=== PATIENT | female | born 2000 | race African-American/Black ===

== ENCOUNTER 2019-05-02 15:11 | Emergency (ER) | payer BC ==
[~2019-05-02] VITALS: Ht 167.6 cm; Wt 90.7 kg
[2019-05-02 15:52] VITALS: BP 142/76
[2019-05-02] MEDS ORDERED: LIDOCAINE 1% Multi-Dose 20 ML VIAL. INJ ONE (16:45)
[2019-05-02] MEDS ORDERED: CEPH-264 PO (16:45)
[2019-05-02] MEDS ORDERED: HYDR-3164 PO (16:45)
[2019-05-02] MEDS ORDERED: HYDROcodone/APAP 5/325MG 1 TAB TABLET PO ONE (16:45)
--- NOTE | 2019-05-02 16:46 | PHYS DOC ---
Past Medical History Past Medical History: No Pertinent History Past Surgical History: Other Additional Past Surgical Histo: finger injury Alcohol Use: None Drug Use: None Adult General Chief Complaint Chief Complaint: MULTIPLE COMPLAINTS HPI HPI Patient is a 19 year old female who presents with cough, earache since April 22. She denies any fever, nausea, vomiting, diarrhea, chest pain, shortness of air, numbness or tingling, visual changes, headache, dizziness, syncope. Patient states she's been taking Mucinex, Flonase and Shirin-B[place]. States that she th inks the Flonase is helping it. Patient also has a vaginal abscess to the top part of the left labia that is dollar coin sized. She states that she is prone to getting these. Also has tenderness and redness to the coccyx. No abscess is seen but she states it is a burning sensation like there is an abscess is caring form. She rates her pain a 9 out of 10. Review of Systems Review of Systems Constitutional: Denies fever or chills [] Eyes: Denies change in visual acuity, redness, or eye pain [] HENT: nasal congestion or sore throat, ear pain [] Respiratory: cough or denies shortness of breath [] Integument: Labia abscess, coccyx redness. Denies rash or skin lesions [] All other systems were reviewed and found to be within normal limits, except as documented in this note. Current Medications Current Medications Current Medications Medications (Trade) Dose Ordered Sig/Audra Start Time Stop Time Status Last Admin Dose Admin Acetaminophen/ Hydrocodone Bitart (Lortab 5/325) 1 tab 1X ONCE 05/02/19 16:45 05/02/19 16:46 DC 05/02/19 17:00 1 TAB Lidocaine HCl (Lidocaine 1% 20ml Vial) 20 ml 1X ONCE 05/02/19 16:45 05/02/19 16:46 DC 05/02/19 16:59 20 ML Allergies Allergies Allergies Coded Allergies Type Severity Reaction Last Updated Verified No Known Drug Allergies 05/02/19 No Physical Exam Physical Exam Constitutional: Well developed, well nourished, no acute distress, non-toxic appearance. [] HENT: Normocephalic, atraumatic, bilateral external ears normal, oropharynx moist, no oral exudates, nose normal. Fluid behind both tympanics.[] Eyes: PERRLA, EOMI, conjunctiva normal, no discharge. [] Neck: Normal range of motion, no tenderness, supple, no stridor. [] Cardiovascular:Heart rate regular rhythm, no murmur [] Lungs & Thorax: Bilateral breath sounds clear to auscultation [] Abdomen: Bowel sounds normal, soft, no tenderness, no masses, no pulsatile masses. [] Skin: Left labial abscess. Warm, dry, no erythema, no rash. [] Back: No tenderness, no CVA tenderness. [] Extremities: No tenderness, no cyanosis, no clubbing, ROM intact, no edema. [] Neurologic: Alert and oriented X 3, normal motor function, normal sensory function, no focal deficits noted. [] Psychologic: Affect normal, judgement normal, mood normal. [] Current Patient Data Vital Signs Vital Signs Date Time Temp Pulse Resp B/P (MAP) Pulse Ox O2 Delivery O2 Flow Rate FiO2 05/02/19 15:52 98.1 106 16 142/76 (98) 98 Room Air 98.1 Lab Values Laboratory Tests Test 05/02/19 16:35 05/02/19 16:54 05/02/19 16:58 Influenza Type A Antigen Negative (NEGATIVE) Influenza Type B Antigen Negative (NEGATIVE) Urine Collection Type Unknown Urine Color [place] Urine Clarity Cloudy Urine pH 6.0 Urine Specific [place] 1.025 Urine Protein 30 mg/dL (NEG-TRACE) Urine Glucose (UA) Negative mg/dL (NEG) Urine Ketones (Stick) Negative mg/dL (NEG) Urine Blood Small (NEG) Urine Nitrite Negative (NEG) Urine Bilirubin Negative (NEG) Urine Urobilinogen Dipstick 1.0 mg/dL (0.2 mg/dL) Urine Leukocyte Esterase Trace (NEG) Urine RBC 1-2 /HPF (0-2) Urine WBC 1-4 /HPF (0-4) Urine Squamous Epithelial Cells Many /LPF Urine Bacteria Many /HPF (0-FEW) Urine Mucus Marked /LPF POC Urine HCG, Qualitative Hcg negative (Negative) EKG EKG [] Radiology/Procedures Radiology/Procedures [] Course & Med Decision Making Course & Med Decision Making There is a small purulent drainage from the abscess on the vagina but there is still redness and it is fluctuant. She agrees to let me drain it. There is a qu arter-sized redness and tenderness area to the coccyx that extends onto both sides of the buttocks. Afebrile and vital signs within normal limits. Lungs are clear to auscultation all lobes. Bilateral tympanic are white but foggy. Throat is pink without exudates. Patient states she does have some nasal congestion. PERRLA. Scant amount of purulent drainage drained. UA contaminated. Abscess Incision and Drainage with irrigation by me: Location: Left upper labia Anesthesia: Local 1% Lidocaine Technique: Irrigated. Disrupted loculations w/ instrumentation Packing: None Complications: Neurovascularly intact post procedure 48 hour wound check. Scar minimization instructions given. ED Ultrasound: Abscess localized by me using concurrent ultrasound guidance and assessment of the anatomy. Real time image archived in the medical record confirms anatomy. Dragon Disclaimer Dragon Disclaimer This electronic medical record was generated, in whole or in part, using a voice recognition dictation system. Departure Departure Impression: Primary Impression: Abscess Additional Impressions: Cough Ear pain Disposition: HOME, SELF-CARE Condition: STABLE Referrals: UNKNOWN PCP NAME (PCP) Patient Instructions: Abscess, Care After, Cough, Adult Additional Instructions: Keep taking [id number] medications and she happened. Take medications as prescribed. Scripts Hydrocodone/Apap 5-325 (NORCO 5-325 TABLET) 1 Each Tablet 1 TAB PO PRN Q6HRS PRN for PAIN, #8 TAB 0 Refills Prov: KAITLIN STANFORD [employer] 05/02/19 Cephalexin (KEFLEX) 500 Mg Capsule 1 CAP PO TID for 7 Days, #21 CAP 0 Refills Prov: KAITLIN STANFORD APRN 05/02/19 Problem Qualifiers Additional Impressions: Ear pain Laterality: bilateral Qualified Codes: H92.03 - Otalgia, bilateral KAITLIN STANFORD [employer] May 02, 2019 16:46
[2019-05-02 17:15] LABS: BILIRUBIN,URINE NEGATIVE (NEG); CLARITY,URINE CLOUDY; COLOR,URINE AMBER; NITRITE,URINE NEGATIVE (NEG); PROTEIN,URINE 30 mg/dL (NEG-TRACE)
[2019-05-02 17:17] LABS: SQUAMOUS EPITHELIAL CELL,UR MANY /LPF
[2019-05-02 17:18] LABS: BACTERIA,URINE MANY /HPF (0-FEW)
[2019-05-02 17:29] LABS: INFLUENZA A PATIENT NEGATIVE (NEGATIVE); INFLUENZA B PATIENT NEGATIVE (NEGATIVE)
== END 2019-05-02 18:01 | disposition home or self-care (01) ==
LOC: ER 15:11
DX: N76.4 Abscess of vulva (principal); B96.89 Other specified bacterial agents as the cause of diseases classified elsewhere; H92.03 Otalgia, bilateral; R05 Cough; L53.9 Erythematous condition, unspecified; Z98.890 Other specified postprocedural states
CPT/HCPCS: 56405; 81001; 81025; 87086; 87804; 99284